=== PATIENT | female | born 2000 | race Caucasian/White ===

== ENCOUNTER 2019-12-05 06:38 | Emergency (ER) | payer MEDICAID ==
[~2019-12-05] VITALS: Ht 160 cm; Wt 141.7 kg
[2019-12-05 07:32] LABS: BILIRUBIN,URINE NEGATIVE (NEGATIVE); CLARITY,URINE CLEAR; COLOR,URINE YELLOW; GLUCOSE, URINE (UA) NEGATIVE (NEGATIVE); KETONES,URINE NEGATIVE (NEGATIVE); LEUKOCYTE ESTERASE ,URINE 1+ (NEGATIVE); NITRITE,URINE NEGATIVE (NEGATIVE); PROTEIN,URINE NEGATIVE (NEGATIVE)
[2019-12-05 07:41] LABS: RBC,URINE RARE /HPF
[2019-12-05 07:42] LABS: AMORPHOUS SEDIMENT,UR FEW AMOR URATES /LPF; BACTERIA,URINE FEW /HPF
[2019-12-05] MEDS ORDERED: FAMOTIDINE 20 MG (PEPCID) TABLET PO STA (07:42)
[2019-12-05] MEDS ORDERED: LIDOCAINE 2% VISCOUS 15 ML UDC PO ONE (07:45)
[2019-12-05] MEDS ORDERED: ANTACID SUSP 30 ML UDC (MYLANTA) PO ONE (07:45)
--- NOTE | 2019-12-05 07:47 | ED Abdominal Pain ---
General Chief Complaint: Abdominal/GI Problems Stated Complaint: PAIN AROUND BELLY BUTTON Source of Information: Patient Exam Limitations: No Limitations History of Present Illness Date Seen by Provider: Dec 05, 2019 Time Seen by Provider: 07:26 Initial Comments The patient presents to the ER by private conveyance with chief complaint that she started expressing some pain around her umbilicus at 3 AM this morning. She says it was a tearing pain like somebody reached through her belly button grabbed her vagina and was trying to pull out. She denies any dysuria. She had some nausea that went away. She is not having any diarrhea and had a bowel movement at midnight. She would not gone to sleep yet. She does not have a history of abdominal surgeries. Her last missed her period was 2 months ago. She recently initiated testosterone treatment so she can transition genders to a man. No discharge or constipation. No trauma. No significant abdominal medical history. She took some ibuprofen around 4:30 and did not receive any relief from that. Pain is worse when she stands up and better when she lies down. Allergies and Home Medications Allergies Coded Allergies: No Known Drug Allergies (Unverified , 12/05/19) Home Medications Omeprazole 40 Mg Capsule.dr, 40 MG PO DAILY Prescribed by: CYNDI BARAKAT on 12/05/19 0920 Patient Home Medication List Home Medication List Reviewed: Yes Review of Systems Review of Systems Constitutional: No chills, No diaphoresis EENTM: No Blurred Vision, No Double Vision Respiratory: Denies Cough, Denies Shortness of Air Cardiovascular: Denies Chest Pain, Denies Lightheadedness Gastrointestinal: See HPI, Abdominal Pain; Denies Constipated, Denies Diarrhea; Nausea; Denies Poor Fluid Intake, Denies Vomiting Genitourinary: Denies Burning, Denies Discharge Musculoskeletal: No back pain, No gout All Other Systems Reviewed Negative Unless Noted: Yes Past Hfsetow-Lwsivs-Xwlzbg Hx Patient Social History Alcohol Use: Denies Use Recreational Drug Use: No Smoking Status: Never a Smoker Recent Foreign Travel: No Contact w/Someone Who Travel: No Physical Exam Vital Signs Vital Signs - First Documented 12/05/19 07:10 Temp 36.6 Pulse 82 Resp 18 B/P (MAP) 120/96 (104) Pulse Ox 97 Capillary Refill : Height/Weight/BMI Height: '" Weight: lbs. oz. kg; BMI Method: General Appearance: WD/WN, no apparent distress HEENT: PERRL/EOMI, pharynx normal Neck: full range of motion, normal inspection Respiratory: lungs clear, normal breath sounds, no respiratory distress, no accessory muscle use Cardiovascular: normal peripheral pulses, regular rate, rhythm Peripheral Pulses: 2+ Dorsalis Pedis (R), 2+ Left Dors-Pedis (L) Gastrointestinal: normal bowel sounds, soft, tenderness (umbilicus and suprapubic region) Extremities: normal range of motion, non-tender, normal capillary refill Neurologic/Psychiatric: alert, normal mood/affect, oriented x 3 Skin: normal color, warm/dry Progress/Results/Core Measures Results/Orders Lab Results Laboratory Tests Test 12/05/19 07:20 12/05/19 08:35 Range/Units Urine Color YELLOW Urine Clarity CLEAR Urine pH 6.0 5-9 Urine Specific [place] >=1.030 1.016-1.022 Urine Protein NEGATIVE NEGATIVE Urine Glucose (UA) NEGATIVE NEGATIVE Urine Ketones NEGATIVE NEGATIVE Urine Nitrite NEGATIVE NEGATIVE Urine Bilirubin NEGATIVE NEGATIVE Urine Urobilinogen 0.2 < = 1.0 MG/DL Urine Leukocyte Esterase 1+ H NEGATIVE Urine RBC (Auto) NEGATIVE NEGATIVE Urine RBC RARE /HPF Urine WBC 5-10 H /HPF Urine Squamous Epithelial Cells 5-10 /HPF Urine Crystals NONE /LPF Urine Amorphous Sediment FEW ZHANG URATES H /LPF Urine Bacteria FEW H /HPF Urine Casts NONE /LPF Urine Mucus NEGATIVE /LPF Urine Culture Indicated YES White Blood Count 11.3 H 4.3-11.0 10^3/uL Red Blood Count 4.72 4.35-5.85 10^6/uL Hemoglobin 13.8 11.5-16.0 G/DL Hematocrit 42 35-52 % Mean Corpuscular Volume 88 80-99 FL Mean Corpuscular Hemoglobin 29 25-34 PG Mean Corpuscular Hemoglobin Concent 33 32-36 G/DL Red Cell Distribution Width 13.1 10.0-14.5 % Platelet Count 237 130-400 10^3/uL Mean Platelet Volume 11.3 H 7.4-10.4 FL Neutrophils (%) (Auto) 38 L 42-75 % Lymphocytes (%) (Auto) 47 H 12-44 % Monocytes (%) (Auto) 13 H 0-12 % Eosinophils (%) (Auto) 2 0-10 % Basophils (%) (Auto) 0 0-10 % Neutrophils # (Auto) 4.3 1.8-7.8 X 10^3 Lymphocytes # (Auto) 5.2 H 1.0-4.0 X 10^3 Monocytes # (Auto) 1.5 H 0.0-1.0 X 10^3 Eosinophils # (Auto) 0.2 0.0-0.3 10^3/uL Basophils # (Auto) 0.0 0.0-0.1 10^3/uL Sodium Level 137 135-145 MMOL/L Potassium Level 3.8 3.6-5.0 MMOL/L Chloride Level 104 98-107 MMOL/L Carbon Dioxide Level 22 21-32 MMOL/L Anion Gap 11 5-14 MMOL/L Blood Urea Nitrogen 9 7-18 MG/DL Creatinine 0.73 0.60-1.30 MG/DL Estimat Glomerular Filtration Rate > 60 BUN/Creatinine Ratio 12 Glucose Level 110 H 70-105 MG/DL Calcium Level 9.6 8.5-10.1 MG/DL Corrected Calcium 9.4 8.5-10.1 MG/DL Total Bilirubin 0.4 0.1-1.0 MG/DL Aspartate Amino Transf (AST/SGOT) 22 5-34 U/L Alanine Aminotransferase (ALT/SGPT) 26 0-55 U/L Alkaline Phosphatase 106 40-136 U/L C-Reactive Protein High Sensitivity 0.52 H 0.00-0.50 MG/DL Total Protein 7.7 6.4-8.2 GM/DL Albumin 4.3 3.2-4.5 GM/DL Lipase 22 8-78 U/L My Orders Orders - CYNDI BARAKAT Ua Culture If Indicated (12/05/19 06:46) Urine Bedside (12/05/19 06:46) Cbc With Automated Diff (12/05/19 07:41) Comprehensive Metabolic Panel (12/05/19 07:41) Lipase (12/05/19 07:41) Hs C Reactive Protein (12/05/19 07:41) Lidocaine 2% Viscous 15 Ml (Xylocaine Vi (12/05/19 07:45) Famotidine Tablet (Pepcid Tablet) (12/05/19 07:42) Antacid Suspension (Mylanta Suspension (12/05/19 07:45) Urine Culture (12/05/19 07:20) Medications Given in ED Current Medications Medications Dose Ordered Sig/Alireza Route Start Time Stop Time Status Last Admin Dose Admin Al Hydrox/Mg Hydrox/Simethicone 30 ml ONCE ONCE PO 12/05/19 07:45 12/05/19 07:46 DC 12/05/19 08:41 30 ML Lidocaine HCl 15 ml ONCE ONCE PO 12/05/19 07:45 12/05/19 07:46 DC 12/05/19 08:41 15 ML Vital Signs/I&O 12/05/19 12/05/19 07:10 09:26 Temp 36.6 36.6 Pulse 82 82 Resp 18 18 B/P (MAP) 120/96 (104) 120/96 (104) Pulse Ox 97 97 Progress Progress Note #1: Time: 07:49 Progress Note Could be related to umbilical hernia, appendicitis, UTI. We have some urine give her some GI cocktail including Pepcid to try and rule out stomach and obtain lab. She does not have a surgical abdomen on exam. Progress Note #2: Time: 09:16 Progress Note The patient's symptoms resolved after the GI cocktail. She stood up and the pain is not returning. I still suspect perhaps there is something to do with the umbilical hernia and have offered a referral to Dr. Edgar to see him in the clinic to assess her umbilical hernia. She is passing stools so obstruction is not likely. Her urinalysis is likely contamination and she has no symptoms of dysuria, frequency urgency etc. We'll going to culture it and follow that. We've explained this to patient and are going to put her on a PPI and she is okay with this plan. We have given return precautions. Departure Impression Primary Impression: Umbilical hernia Qualified Codes: K42.9 - Umbilical hernia without obstruction or gangrene Additional Impression: GERD (gastroesophageal reflux disease) Qualified Codes: K21.9 - Gastro-esophageal reflux disease without esophagitis Disposition: 01 HOME, SELF-CARE Condition: Stable Departure-Patient Inst. Decision time for Depature: 09:17 Referrals: DONN EDGAR DO NO,LOCAL PHYSICIAN (PCP) Primary Care Physician Patient Instructions: Acid Reflux and GERD in Adults (DC), LOCAL PHYSICIAN LIST, Umbilical Hernia, Adult Add. Discharge Instructions: Start taking omeprazole 40 mg daily for the next 30 days. If your pain returns try Tums, Rolaids, Mylanta, Maalox etc. If that does not help you can try Tylenol 1000 mg every 8 hours and/or ibuprofen 800 mg every 8 hours. If this does not help your pain then you need to follow-up with a doctor. If you get fever chills, intractable nausea and vomiting or severe pain then you should return to the nearest ER. You may follow-up with Dr. Edgar, General Surgery and discuss your umbilical hernia and whether anything needs to be done about it at this time. Eat a high-fiber diet and use MiraLAX as necessary if you become constipated. We will culture urine and call you if you need to be on an antibiotic. All discharge instructions reviewed with patient and/or family. Voiced understanding. Scripts Omeprazole (Omeprazole) 40 Mg Capsule. 40 MG PO DAILY for 30 Days, #30 CAP 0 Refills Prov: CYNDI BARAKAT 12/05/19 Copy Copies To 1: DONN EDGAR DO CYNDI BARAKAT Dec 05, 2019 07:47
[2019-12-05 08:46] LABS: BASOPHILS % (AUTO) 0 % (0-10); EOSINOPHILS # (AUTO) 0.2 10^3/uL (0.0-0.3); EOSINOPHILS % (AUTO) 2 % (0-10); HEMATOCRIT 42 % (35-52); HEMOGLOBIN 13.8 G/DL (11.5-16.0); LYMPHOCYTES # (AUTO) 5.2 X 10^3 (1.0-4.0); LYMPHOCYTES % (AUTO) 47 % (12-44); MEAN CORPUSCULAR HEMOGLOBIN 29 PG (25-34); MEAN CORPUSCULAR HGB CONC 33 G/DL (32-36); MEAN CORPUSCULAR VOLUME 88 FL (80-99); MEAN PLATELET VOLUME 11.3 FL (7.4-10.4); MONOCYTES # (AUTO) 1.5 X 10^3 (0.0-1.0); MONOCYTES % (AUTO) 13 % (0-12); NEUTROPHILS # (AUTO) 4.3 X 10^3 (1.8-7.8); NEUTROPHILS % (AUTO) 38 % (42-75); PLATELET COUNT 237 10^3/uL (130-400); WHITE BLOOD COUNT 11.3 10^3/uL (4.3-11.0)
[2019-12-05 09:08] LABS: ALANINE AMINOTRANSFERASE 26 U/L (0-55); ALBUMIN 4.3 GM/DL (3.2-4.5); ALKALINE PHOSPHATASE 106 U/L (40-136); BILIRUBIN,TOTAL 0.4 MG/DL (0.1-1.0); BUN/CREATININE RATIO 12; CALCIUM 9.6 MG/DL (8.5-10.1); CARBON DIOXIDE 22 MMOL/L (21-32); CHLORIDE 104 MMOL/L (98-107); CREATININE SERUM 0.73 MG/DL (0.60-1.30); GFR ESTIMATED > 60; GLUCOSE 110 MG/DL (70-105); LIPASE 22 U/L (8-78); POTASSIUM 3.8 MMOL/L (3.6-5.0); SODIUM 137 MMOL/L (135-145); TOTAL PROTEIN 7.7 GM/DL (6.4-8.2)
[2019-12-05] MEDS ORDERED: OMEP40CA27 PO (09:20)
[2019-12-05 09:26] VITALS: BP 120/96
== END 2019-12-05 09:26 | disposition home or self-care (01) ==
LOC: ER 06:42
DX: K42.9 Umbilical hernia without obstruction or gangrene (principal); K21.9 Gastro-esophageal reflux disease without esophagitis
CPT/HCPCS: 36415; 80053; 81000; 83690; 85025; 86141; 87077; 87088

== ENCOUNTER 2020-06-15 20:47 | Emergency (ER) | payer MEDICAID ==
[~2020-06-15 20:47] MED LIST: OMEP40CA27 PO
[2020-06-15] MEDS ORDERED: ASPIRIN 81 MG CHEW (CHILDREN'S ASA) PO ONE (21:00)
--- NOTE | 2020-06-15 21:08 | ED Chest Pain ---
General Stated Complaint: CHEST PAIN / L ARM NUMBNESS Source: patient History of Present Illness Date Seen by Provider: Jun 15, 2020 Time Seen by Provider: 20:55 Initial Comments PT ARRIVES VIA POV FROM HOME C/O CHEST PAIN SINCE AROUND 2029 TONIGHT--BEGAN WHILE DRIVING RATES PAIN 5-6 /10 PAIN WORSE WITH DEEP BREATH C/O LEFT ARM TINGLING NO SHORTNESS OF BREATH NO PALPITATIONS NO SWELLING IN LEGS/ FEET OR PAIN IN CALVES NO DIZZINESS OR SYNCOPE NO COUGH/CONGESTION/URI SYMPTOMS NO FEVER OR CHILLS NO SORE THROAT NO LOSS OF TASTE OR SMELL NO BODY ACHES NO GI SYMPTOMS NO CHANGE IN CHRONIC DAILY HEADACHE NO KNOWN EXPOSURE TO COVID-19 PT IS ON TESTOSTERONE SUPPLEMENTS--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 NEVER ON MEDICATIONS PCP: ANDRES Allergies and Home Medications Allergies Coded Allergies: No Known Drug Allergies (Unverified , 12/05/19) Home Medications Omeprazole 40 Mg Capsule.dr, 40 MG PO DAILY Prescribed by: CYNDI BARAKAT on 12/05/19 0920 Patient Home Medication List Home Medication List Reviewed: Yes Review of Systems Review of Systems Constitutional: no symptoms reported EENTM: No Symptoms Reported Respiratory: No Symptoms Reported Cardiovascular: See HPI, Chest Pain; Denies Edema, Denies Irregular Heart Rate, Denies Lightheadedness, Denies Palpitations, Denies Syncope Gastrointestinal: No Symptoms Reported Genitourinary: No Symptoms Reported Musculoskeletal: no symptoms reported Skin: no symptoms reported Psychiatric/Neurological: See HPI Endocrine: No Symptoms Reported Hematologic/Lymphatic: No Symptoms Reported Past Nujkstd-Obcynq-Adgrig Hx Past Med/Social Hx: Reviewed and Corrections made Patient Social History Alcohol Use: Past History Drug of Choice: DENIES Smoking Status: Current Everyday Smoker Type Used: Cigars, Electronic/Vapor Recent Hopitalizations: No Past Medical History Surgeries: Yes (WISDOM TEETH) Respiratory: No Cardiac: Yes (ELEVATED HEART RATE CHILD--NO MEDICATIONS, NO TREE PRUNER SINCE AGE 10) Neurological: Yes (DAILY HEADACHES) Headaches /Migraines Reproductive Disorders: Yes ("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 oz. kg; 55.00 BMI Method: General Appearance: No Apparent Distress, WD/WN, Obese, Other (HIRSUITE) Neck: Normal Inspection Respiratory: Normal Breath Sounds Cardiovascular: Regular Rate, Rhythm, No Edema, No JVD, No Murmur, Normal Peripheral Pulses Gastrointestinal: Non Tender, Soft Extremity: Normal Inspection Neurologic/Psychiatric: Alert, Oriented x3, No Motor/Sensory Deficits, Normal Mood/Affect, marker delivery II-XII Norm as Tested Skin: Normal Color, Warm/Dry Progress/Results/Core Measures Results/Orders Lab Results Laboratory Tests Test 06/15/20 21:00 06/15/20 21:33 06/16/20 00:15 Range/Units Urine Color YELLOW Urine Clarity CLEAR Urine pH 6.5 5-9 Urine Specific [place] 1.025 H 1.016-1.022 Urine Protein NEGATIVE NEGATIVE Urine Glucose (UA) NEGATIVE NEGATIVE Urine Ketones TRACE H NEGATIVE Urine Nitrite NEGATIVE NEGATIVE Urine Bilirubin NEGATIVE NEGATIVE Urine Urobilinogen 0.2 < = 1.0 MG/DL Urine Leukocyte Esterase NEGATIVE NEGATIVE Urine RBC (Auto) NEGATIVE NEGATIVE Urine RBC NONE /HPF Urine WBC NONE /HPF Urine Squamous Epithelial Cells 2-5 /HPF Urine Crystals NONE /LPF Urine Bacteria NEGATIVE /HPF Urine Casts NONE /LPF Urine Mucus LARGE H /LPF Urine Culture Indicated NO Urine Opiates Screen NEGATIVE NEGATIVE Urine Oxycodone Screen NEGATIVE NEGATIVE Urine Methadone Screen NEGATIVE NEGATIVE Urine Propoxyphene Screen NEGATIVE NEGATIVE Urine Barbiturates Screen NEGATIVE NEGATIVE Ur Tricyclic Antidepressants Screen NEGATIVE NEGATIVE Urine Phencyclidine Screen NEGATIVE NEGATIVE Urine Amphetamines Screen NEGATIVE NEGATIVE Urine Methamphetamines Screen NEGATIVE NEGATIVE Urine Benzodiazepines Screen NEGATIVE NEGATIVE Urine Cocaine Screen NEGATIVE NEGATIVE Urine Cannabinoids Screen NEGATIVE NEGATIVE White Blood Count 11.5 H 4.3-11.0 10^3/uL Red Blood Count 4.63 3.80-5.11 10^6/uL Hemoglobin 13.5 11.5-16.0 g/dL Hematocrit 41 35-52 % Mean Corpuscular Volume 89 80-99 fL Mean Corpuscular Hemoglobin 29 25-34 pg Mean Corpuscular Hemoglobin Concent 33 32-36 g/dL Red Cell Distribution Width 13.2 10.0-14.5 % Platelet Count 261 130-400 10^3/uL Mean Platelet Volume 11.0 9.0-12.2 fL Immature Granulocyte % (Auto) 0 % Neutrophils (%) (Auto) 45 42-75 % Lymphocytes (%) (Auto) 43 12-44 % Monocytes (%) (Auto) 9 0-12 % Eosinophils (%) (Auto) 1 0-10 % Basophils (%) (Auto) 0 0-10 % Neutrophils # (Auto) 5.2 1.8-7.8 10^3/uL Lymphocytes # (Auto) 5.0 H 1.0-4.0 10^3/uL Monocytes # (Auto) 1.1 H 0.0-1.0 10^3/uL Eosinophils # (Auto) 0.2 0.0-0.3 10^3/uL Basophils # (Auto) 0.1 0.0-0.1 10^3/uL Immature Granulocyte # (Auto) 0.0 0.0-0.1 10^3/uL Prothrombin Time 12.4 12.2-14.7 SEC INR Comment 0.9 0.8-1.4 Activated Partial Thromboplast Time 27 24-35 SEC Sodium Level 141 135-145 MMOL/L Potassium Level 3.8 3.6-5.0 MMOL/L Chloride Level 104 98-107 MMOL/L Carbon Dioxide Level 24 21-32 MMOL/L Anion Gap 13 5-14 MMOL/L Blood Urea Nitrogen 9 7-18 MG/DL Creatinine 0.82 0.60-1.30 MG/DL Estimat Glomerular Filtration Rate > 60 BUN/Creatinine Ratio 11 Glucose Level 98 70-105 MG/DL Calcium Level 8.8 8.5-10.1 MG/DL Corrected Calcium 8.5 8.5-10.1 MG/DL Magnesium Level 2.0 1.6-2.4 MG/DL Total Bilirubin 0.5 0.1-1.0 MG/DL Aspartate Amino Transf (AST/SGOT) 27 5-34 U/L Alanine Aminotransferase (ALT/SGPT) 43 0-55 U/L Alkaline Phosphatase 98 40-136 U/L Total Creatine Kinase 309 H 29-168 U/L Creatine Kinase MB 2.1 <6.6 NG/ML Myoglobin 52.4 10.0-92.0 NG/ML Troponin I < 0.028 < 0.028 <0.028 NG/ML B-Type Natriuretic Peptide < 10.0 <100.0 PG/ML Total Protein 7.9 6.4-8.2 GM/DL Albumin 4.4 3.2-4.5 GM/DL Amylase Level 61 25-125 U/L Lipase 30 8-78 U/L Serum Test, Qualitative NEGATIVE NEGATIVE Serum Alcohol < 10 <10 MG/DL My Orders Orders - MANPREET LEO DO Cbc With Automated Diff (06/15/20 20:54) Magnesium (06/15/20 20:54) Chest 1 View, Ap/Pa Only (06/15/20 20:54) Ekg Tracing (06/15/20 20:54) Comprehensive Metabolic Panel (06/15/20 20:54) Myoglobin Serum (06/15/20 20:54) Protime With Inr (06/15/20 20:54) Partial Thromboplastin Time (06/15/20 20:54) O2 (06/15/20 20:54) Monitor-Rhythm Ecg Trace Only (06/15/20 20:54) Ed Iv/Invasive Line Start (06/15/20 20:54) Creatine Kinase (06/15/20 20:54) Creatine Kinase Mb (06/15/20 20:54) Lipase (06/15/20 20:54) Amylase (06/15/20 20:54) BNP (06/15/20 20:54) Troponin I (06/15/20 20:54) Aspirin Chewable Tablet (Baby Aspirin Ch (06/15/20 21:00) Alcohol (06/15/20 20:54) Drug Screen Stat (Urine) (06/15/20 20:54) Hcg,Qualitative Serum (06/15/20 20:54) Ua Culture If Indicated (06/15/20 20:54) Ketorolac Injection (Toradol Injection) (06/15/20 22:30) Ekg Tracing (06/16/20 00:10) Troponin I (06/16/20 00:10) Medications Given in ED Current Medications Medications Dose Ordered Sig/Laireza Route Start Time Stop Time Status Last Admin Dose Admin Aspirin 324 mg ONCE ONCE PO 06/15/20 21:00 06/15/20 21:01 DC 06/15/20 21:14 324 MG Ketorolac Tromethamine 30 mg ONCE ONCE IVP 06/15/20 22:30 06/15/20 22:31 DC 06/15/20 22:44 30 MG Vital Signs/I&O 06/15/20 06/15/20 20:55 20:55 Temp 37.0 Pulse 116 Resp 18 B/P (MAP) 134/99 (111) O2 Delivery Room Air Room Air Progress Progress Note : Progress Note GIVEN ASPIRIN CHEST PAIN RESOLVED ON IT'S OWN SHORTLY AFTER ARRIVAL PT LATER STATED THAT HER LEFT ARM WAS STILL A LITTLE HEAVY--GIVEN TORADOL WITH COMPLETE RESOLUTION OF SYMPTOMS NO FURTHER COMPLAINTS OF ANY KIND FOR REMAINDER OF ER STAY PT OBSERVED IN ER AND REPEAT TROPONIN AND EKG DONE. Initial ECG Impression Date: Jun 15, 2020 Initial ECG Impression Time: 21:00 Initial ECG Rate: 104 Initial ECG Rhythm: S.Tach EKG : EKG Time: 00:14 Rate: 83 Rhythm: Normal Sinus ECG Comparisson: Unchanged Diagnostic Imaging Comments CXR--PER RADIOLOGIST REPORT AT 2205 FINDINGS: The heart size is within normal limits. The lungs are clear. The osseous structures, where visualized, are intact. IMPRESSION: Negative for active disease. Reviewed: Reviewed by Me Departure Impression Primary Impression: Chest pain Disposition: HOME, SELF-CARE Condition: Improved Departure-Patient Inst. Referrals: NO,LOCAL PHYSICIAN (PCP/Family) Primary Care Physician Patient Instructions: Chest Pain (DC) Add. Discharge Instructions: FOLLOW UP WITH YOUR DR NEEDED RETURN TO ER IF SYMPTOMS PERSIST MANPREET LEO DO Jun 15, 2020 21:08
[2020-06-15 21:15] LABS: BILIRUBIN,URINE NEGATIVE (NEGATIVE); CLARITY,URINE CLEAR; COLOR,URINE YELLOW; GLUCOSE, URINE (UA) NEGATIVE (NEGATIVE); KETONES,URINE TRACE (NEGATIVE); LEUKOCYTE ESTERASE ,URINE NEGATIVE (NEGATIVE); NITRITE,URINE NEGATIVE (NEGATIVE); PH,URINE 6.5 (5-9); PROTEIN,URINE NEGATIVE (NEGATIVE)
[2020-06-15 21:33] LABS: AMPHETAMINE SCREEN, URINE NEGATIVE (NEGATIVE); BARBITURATE SCREEN URINE NEGATIVE (NEGATIVE); BENZODIAZEPINES SCREEN URINE NEGATIVE (NEGATIVE); CANNABINOID SCREEN, URINE NEGATIVE (NEGATIVE); COCAINE SCREEN URINE NEGATIVE (NEGATIVE); METHADONE STAT NEGATIVE (NEGATIVE); METHAMPHETAMINE SCREEN URINE S NEGATIVE (NEGATIVE); OPIATE SCREEN URINE NEGATIVE (NEGATIVE); OXYCODONE STAT NEGATIVE (NEGATIVE); PROPOXYPHENE STAT NEGATIVE (NEGATIVE); TRICYCLIC ANTIDEPRESSANTS SCRE NEGATIVE (NEGATIVE)
[2020-06-15 21:35] LABS: BACTERIA,URINE NEGATIVE /HPF
[2020-06-15 21:40] LABS: BASOPHILS # (AUTO) 0.1 10^3/uL (0.0-0.1); BASOPHILS % (AUTO) 0 % (0-10); EOSINOPHILS # (AUTO) 0.2 10^3/uL (0.0-0.3); EOSINOPHILS % (AUTO) 1 % (0-10); HEMATOCRIT 41 % (35-52); HEMOGLOBIN 13.5 g/dL (11.5-16.0); LYMPHOCYTES % (AUTO) 43 % (12-44); MEAN CORPUSCULAR HEMOGLOBIN 29 pg (25-34); MEAN CORPUSCULAR HGB CONC 33 g/dL (32-36); MEAN CORPUSCULAR VOLUME 89 fL (80-99); MONOCYTES # (AUTO) 1.1 10^3/uL (0.0-1.0); MONOCYTES % (AUTO) 9 % (0-12); NEUTROPHILS # (AUTO) 5.2 10^3/uL (1.8-7.8); NEUTROPHILS % (AUTO) 45 % (42-75); PLATELET COUNT 261 10^3/uL (130-400); WHITE BLOOD COUNT 11.5 10^3/uL (4.3-11.0)
--- NOTE | 2020-06-15 21:57 | Diagnostic Imaging Report ---
INDICATION: Chest pain. EXAMINATION: Portable erect AP chest at 9:17 p.m. COMPARISON: There are no prior exams available for comparison. FINDINGS: The heart size is within normal limits. The lungs are generally clear. There is no sign for failure, pneumonia or for pleural effusion. There is a 5 mm benign-appearing nodular density overlying the right upper lung. Most likely this is a granuloma. The mediastinum is not widened. The osseous structures, where visualized, are intact. IMPRESSION: Negative for active disease. Dictated by: Dictated on workstation # [id number]
[2020-06-15 21:59] LABS: ALANINE AMINOTRANSFERASE 43 U/L (0-55); ALBUMIN 4.4 GM/DL (3.2-4.5); ALKALINE PHOSPHATASE 98 U/L (40-136); AMYLASE 61 U/L (25-125); BILIRUBIN,TOTAL 0.5 MG/DL (0.1-1.0); BUN/CREATININE RATIO 11; CALCIUM 8.8 MG/DL (8.5-10.1); CARBON DIOXIDE 24 MMOL/L (21-32); CHLORIDE 104 MMOL/L (98-107); CREATINE KINASE 309 U/L (29-168); CREATININE SERUM 0.82 MG/DL (0.60-1.30); GFR ESTIMATED > 60; GLUCOSE 98 MG/DL (70-105); LIPASE 30 U/L (8-78); POTASSIUM 3.8 MMOL/L (3.6-5.0); SODIUM 141 MMOL/L (135-145); TOTAL PROTEIN 7.9 GM/DL (6.4-8.2)
[2020-06-15 22:02] LABS: INR 0.9 (0.8-1.4); PROTHROMBIN TIME PATIENT 12.4 SEC (12.2-14.7)
[2020-06-15 22:08] LABS: CREATINE KINASE MB 2.1 NG/ML (<6.6)
[2020-06-15] MEDS ORDERED: KETOROLAC 30 MG/ML VIAL IVP ONE (22:30)
[2020-06-16 01:10] VITALS: BP 125/88
== END 2020-06-16 01:13 | disposition home or self-care (01) ==
LOC: EDUNIT# 20:47 → ER 20:49
DX: R07.1 Chest pain on breathing (principal); R20.0 Anesthesia of skin; E66.9 Obesity, unspecified; F17.290 Nicotine dependence, other tobacco product, uncomplicated; Z86.79 Personal history of other diseases of the circulatory system; Z79.890 Hormone replacement therapy
CPT/HCPCS: 71045; 80053; 80306; 81000; 82150; 82550; 82553; 83690; 83735; 83874; 83880; 84484 ×2; 84703; 85025; 85610; 85730; 93005 ×2; 93041; 99284; G0480; 36415; 80320